=== PATIENT | female | born 1975 | race African-American/Black ===

== ENCOUNTER 2016-09-17 12:23 | Emergency (ER) | payer SELFPAY ==
[~2016-09-17] VITALS: Ht 170.2 cm; Wt 80.0 kg
[~2016-09-17 12:23] MED LIST: IBUP-238 PO; METH750T2 PO; PHEN-426 PO; Z.0.NO CURRENT MEDS
[2016-09-17 12:26] VITALS: BP 127/77; PULSE 98; RESP 14; TEMP 98.9; O2SAT 96
--- NOTE | 2016-09-17 13:23 | PD ---
HPI Chief Complaint: Complaint Time Seen by Provider: 13:23 Travel History International Travel<30 days: No Contact w/Intl Traveler<30days: No Traveled to known affect area: No History of Present Illness HPI 41-year-old female presents to the emergency department with multiple complaints. First complaint is burning on urination, urinary urgency, frequency , and hematuria 3 weeks. Has associated lower back pain that is worse on the left. Also reports left lower quadrant abdominal pain. Denies history of kidney stones. It is also complaining of vaginal odor and discharge 3 weeks. Denies vaginal itching or lesions. Reports unprotected sexual intercourse with one partner. Denies vaginal pain. Denies fever, chills. Reports nausea without vomiting. Is also complaining of multiple boils to her buttocks 3 weeks. Reports most of the boils of him to ahead, burst and drained. There is one that has started over the past few days. Denies difficulty stooling. Starting Azo for her urinary symptoms with no relief. Has done warm compresses to her buttocks with good relief of the boils. Has not tried any treatments or medications for her vaginal odor or discharge. History of asthma. No other modifying factors or associated signs and symptoms. PFSH Past Medical History Asthma: Yes ?: Not Para: 4 Past Surgical History Hysterectomy: No (TUBAL) Social History Alcohol Use: Yes (socially) Tobacco Use: Yes (/2 PPD) Allergies-Medications (Allergen,Severity, Reaction): Coded Allergies: No Known Allergies (Verified , 09/17/16) Reported Meds & Prescriptions Reported Meds & Active Scripts Active Ibuprofen 800 Mg Tab 800 Mg PO Q6HR PRN Bactrim DS (Sulfamethoxazole-Trimethoprim) 800-160 Mg Tab 1 Tab PO BID 10 Days Keflex (Cephalexin) 500 Mg Cap 500 Mg PO Q6H 10 Days Review of Systems Except as stated in HPI: all other systems reviewed are Neg Physical Exam Narrative GENERAL: Well-nourished, well-developed female patient, in no acute distress; afebrile, nontoxic-appearing SKIN: Warm and dry. No rash. 4 indurated areas noted to bilateral buttocks; 3 of them are nonfluctuant and appeared to have already drained; one of them is approximately 0.5 cm in diameter and is nonfluctuant and with mild erythema and tenderness on palpation; none with pointing or drainage. HEAD: Atraumatic. Normocephalic. EYES: Pupils equal and round. No scleral icterus. No injection or drainage. ENT: Mucosa pink and moist. NECK: Trachea midline. CARDIOVASCULAR: Regular rate and rhythm. No murmur appreciated. RESPIRATORY: No accessory muscle use. Clear to auscultation. Breath sounds equal bilaterally. GASTROINTESTINAL: Abdomen soft, lower quadrant abdominal tenderness on palpation, nondistended. Hepatic and splenic margins not palpable. Bowel sounds are active 4 quadrants. Bladder nontender and nondistended. PELVIC: Speculum exam reveals edematous and erythematous cervix with moderate amount of yellow, foul-smelling mucopurulent discharge. Bimanual exam reveals no palpable masses or adnexa tenderness, no uterine tenderness. Negative cervical motion tenderness. MUSCULOSKELETAL: No obvious deformities. No clubbing. No cyanosis. No edema. BACK: Left CVA tenderness NEUROLOGICAL: Awake and alert. Oriented 3. No obvious cranial nerve deficits. Motor grossly within normal limits. Normal speech. Moves all extremities. 5/5 strength to all extremities. PSYCHIATRIC: Appropriate mood and affect; insight and judgment normal. Data Data Last Documented VS Vital Signs Date Time Temp Pulse Resp B/P Pulse Ox O2 Delivery O2 Flow Rate FiO2 09/17/16 12:26 98.9 98 14 127/77 96 Orders Urinalysis - C+S If Indicated (09/17/16 12:29) Ed Urine Pregnancytest Poc (09/17/16 12:45) Ct Abd/Pel W/O Iv Contrast (09/17/16 ) Complete Blood Count With Diff (09/17/16 13:52) Comprehensive Metabolic Panel (09/17/16 13:52) Lipase (09/17/16 13:52) Gc And Chlamydia Pcr (09/17/16 13:52) Wet Prep Profile (09/17/16 13:52) Iv Access Insert/Monitor (09/17/16 14:43) Ketorolac Inj (Toradol Inj) (09/17/16 16:00) Azithromycin Powd Pack (Zithromax Powd P (09/17/16 16:00) Ceftriaxone Inj (Rocephin Inj) (09/17/16 16:00) Labs Laboratory Tests Test 09/17/16 09/17/16 09/17/16 13:06 14:45 15:30 Urine Color YELLOW Urine Turbidity CLEAR Urine pH 6.0 Urine Specific [place] 1.027 Urine Protein NEG mg/dL Urine Glucose (UA) NEG mg/dL Urine Ketones NEG mg/dL Urine Occult Blood MOD Urine Nitrite NEG Urine Bilirubin NEG Urine Urobilinogen LESS THAN 2.0 MG/DL Urine Leukocyte Esterase NEG Urine RBC 7 /hpf Urine WBC 2 /hpf Urine Squamous Epithelial 2 /hpf Cells Urine Bacteria RARE /hpf Urine Hyaline Casts 1 /lpf Urine Mucus FEW /lpf Microscopic Urinalysis Comment CULT NOT INDICATED White Blood Count 6.6 TH/MM3 Red Blood Count 4.80 MIL/MM3 Hemoglobin 13.2 GM/DL Hematocrit 40.1 % Mean Corpuscular Volume 83.6 FL Mean Corpuscular Hemoglobin 27.5 PG Mean Corpuscular Hemoglobin 32.9 % Concent Red Cell Distribution Width 13.8 % Platelet Count 288 TH/MM3 Mean Platelet Volume 8.4 FL Neutrophils (%) (Auto) 61.5 % Lymphocytes (%) (Auto) 31.3 % Monocytes (%) (Auto) 5.8 % Eosinophils (%) (Auto) 0.6 % Basophils (%) (Auto) 0.8 % Neutrophils # (Auto) 4.1 TH/MM3 Lymphocytes # (Auto) 2.1 TH/MM3 Monocytes # (Auto) 0.4 TH/MM3 Eosinophils # (Auto) 0.0 TH/MM3 Basophils # (Auto) 0.1 TH/MM3 CBC Comment DIFF FINAL Differential Comment Sodium Level 144 MEQ/L Potassium Level 4.3 MEQ/L Chloride Level 111 MEQ/L Carbon Dioxide Level 27.1 MEQ/L Anion Gap 6 MEQ/L Blood Urea Nitrogen 15 MG/DL Creatinine 0.79 MG/DL Estimat Glomerular Filtration 96 ML/MIN Rate Random Glucose 96 MG/DL Calcium Level 8.9 MG/DL Total Bilirubin 0.2 MG/DL Aspartate Amino Transf 6 U/L (AST/SGOT) Alanine Aminotransferase 14 U/L (ALT/SGPT) Alkaline Phosphatase 70 U/L Total Protein 7.2 GM/DL Albumin 3.5 GM/DL Lipase 72 U/L Clue Cells (Wet Prep) NONE SEEN Vaginal Trichomonas (Wet Prep) NONE SEEN Vaginal Yeast (Wet Prep) NONE SEEN MDM Medical Decision Making Medical Screen Exam Complete: Yes Emergency Medical Condition: Yes Medical Record Reviewed: Yes Differential Diagnosis Urinary tract infection, pyelonephritis, kidney stones, abscesses, vaginal yeast , bacterial vaginosis, gonorrhea, chlamydia Narrative Course 41-year-old female with multiple complaints. Vital signs are stable and patient is afebrile. Reproducible left lower quadrant abdominal pain. Left CVA tenderness. Hematuria. IV set obtained. Labs and imaging ordered. 1400: Urinalysis concludes occult blood, 7 urine RBC, and without signs of infection. 1500: CT abdomen/pelvis concludes 3.73.1 cm cyst in the right ovary; and large umbilical hernia. Results of the CT discussed with the patient and Patient provided with a report of the CT. 1545: Pelvic exam with a cervix that is edematous and erythematous with foul- smelling mucopurulent discharge. Negative cervical motion tenderness. Patient will be empirically treated with Rocephin and azithromycin. 1629: Wet prep negative for clue cells, vaginal Trichomonas, vaginal yeast. Chlamydia and gonorrhea pending. I discussed the patient with Dr. Thibodeaux, my attending physician and she agrees the patient can continue to follow up outpatient. Keflex and Bactrim prescribed for home for buttock abscesses. Ibuprofen prescribed for home. Instructed patient to follow-up with primary care provider in one week to recheck urine for blood and she verbalized understanding and agreement. Patient is medically cleared and stable for discharge. Discussed reasons to return to the emergency department. Instructed patient to follow up with primary care provider. Patient agrees with treatment plan. The patients vital signs are stable and the patient is stable for outpatient follow-up and treatment. Patient discharged home, stable and in no acute distress. Diagnosis Primary Impression: Boil of buttock Additional Impressions: Cervicitis Hematuria Referrals: Elevator Attendant Primary Care Physician Patient Instructions: Abscess (ED), Cervicitis (ED), General Instructions, Hematuria (ED) Additional Instructions: Complete full course of antibiotics Warm compresses to buttocks to help relieve boils Keep area clean and dry Ibuprofen or Tylenol as instructed needed for pain and inflammation Follow-up with primary care provider Follow-up with bioinformatics programmer Follow-up with urologist as needed Return to emergency department immediately with worsening of symptoms Med/Other Pt SpecificInfo: Prescription(s) given Scripts Ibuprofen 800 Mg [id number] Mg PO Q6HR PRN (PAIN) #30 TAB Ref 0 Prov:Sandra Gonzalez [employer] TEACHER 1/6/17 Sulfamethoxazole-Trimethoprim (Bactrim DS)800-160 Mg Tab1 Tab PO BID 10 Days Ref 0 Prov:Sandra Gonzalez 09/17/16 Cephalexin (Keflex)500 Mg [id number] Mg PO Q6H 10 Days Ref 0 Prov:Sandra Gonzalez 09/17/16 Disposition: 01 DISCHARGE HOME Condition: Stable Sandra Gonzalez Sep 17, 2016 13:23
[2016-09-17 13:44] LABS: BACTERIA, URINE RARE /hpf; BLOOD, URINE MOD (NEG); COMMENT (UR) CULT NOT INDICATED; CULTURE IF INDICATED CULT NOT INDICATED; GLUCOSE,URINE NEG (NEG); HYALINE CAST, URINE 1 /lpf (RARE); KETONE, URINE NEG (NEG); MUCUS URINE FEW /lpf (OCC); NITRITE,URINE NEG (NEG); SQUAMOUS EPITHELIAL CELL URINE 2 /hpf (0-5); URINE COLOR YELLOW (YELLW/STRAW)
--- NOTE | 2016-09-17 14:21 | RADRPT ---
EXAM DATE/TIME: 09/17/2016 14:02 [facility] COMPARISON: No previous studies available for comparison. INDICATIONS : Left flank pain as well as burning sensation when urinating, evaluate for renal stone. ORAL CONTRAST: No oral contrast ingested. RADIATION DOSE: 13.71 CTDIvol (mGy) MEDICAL HISTORY : None SURGICAL HISTORY : Tubal ligation. ENCOUNTER: Initial ACUITY: 2 days PAIN SCALE: 3/10 LOCATION: Left flank TECHNIQUE: Volumetric scanning of the abdomen and pelvis was performed. Using automated exposure control and ad justment of the mA and/or kV according to patient size, radiation dose was kept as low as reasonably achievable to obtain optimal diagnostic quality images. FINDINGS: The limited portion of the lung base visualized is clear. Right kidney/ureter: The right kidney is normal in size. No stones are seen. The right ureter is followed throughout its c ourse and is unremarkable in appearance. Left kidney/ureter: The left kidney is normal in size. No stones are seen. The left ureter is followed throughout its cou rse and is normal in caliber. Bladder: No stones are identified within the bladder. The appearance of the liver, spleen, pancreas and adrenal glands is within normal limits. The abdomin al aorta is normal in caliber. There is no retroperitoneal adenopathy. The visualized loops of small large bowel are unremarkable. The exam does demonstrate a moderate sized umbilical hernia. The reproductive organs are intact. The exam does demonstrate a 3.7 x 3.1 cm cyst in the right ovary. There is no free fluid within the pelvis. No iliac or inguinal adenopathy is seen. CONCLUSION: 1. 3.7 x 3.1 cm cyst in the right ovary. 2. Large umbilical hernia. Filemon Garcia MD on September 17, 2016 at 14:14 Board Certified Radiologist. This report was verified electronically.
[2016-09-17 15:03] LABS: AUTOMATED NEUTROPHIL # 4.1 TH/MM3 (1.8-7.7); BASOPHIL # 0.1 TH/MM3 (0-0.2); BASOPHIL % 0.8 % (0.0-2.0); EOSINOPHIL % 0.6 % (0.0-4.0); HEMATOCRIT 40.1 % (35.0-46.0); HEMO FLAGS DIFF FINAL; LYMPH % 31.3 % (9.0-44.0); LYMPHOCYTE # 2.1 TH/MM3 (1.0-4.8); MEAN CELL VOLUME 83.6 FL (80.0-100.0); MEAN CORPUSCULAR HEMOGLOBIN 27.5 PG (27.0-34.0); MEAN CORPUSCULAR HGB CONC 32.9 % (32.0-36.0); MONO % 5.8 % (0.0-8.0); NEUT % 61.5 % (16.0-70.0); PLATELET COUNT 288 TH/MM3 (150-450); RED CELL DISTRIBUTION WIDTH 13.8 % (11.6-17.2); WHITE BLOOD COUNT 6.6 TH/MM3 (4.0-11.0)
[2016-09-17 15:24] LABS: ALT (GPT) 14 U/L (10-53); ANION GAP 6 MEQ/L (5-15); AST (GOT) 6 U/L (15-37); BICARBONATE 27.1 MEQ/L (21.0-32.0); BLOOD UREA NITROGEN 15 MG/DL (7-18); CHLORIDE 111 MEQ/L (98-107); GLOMERULAR FILTRATION RATE 96 ML/MIN (>89); POTASSIUM 4.3 MEQ/L (3.5-5.1); SODIUM (NA) 144 MEQ/L (136-145)
[2016-09-17 15:26] LABS: ALKALINE PHOSPHATASE 70 U/L (45-117); TOTAL BILIRUBIN ADULT 0.2 MG/DL (0.2-1.0)
[2016-09-17] MEDS ORDERED: KETOROLAC TROMETHAMINE 30 MG/ML (IVP) VIAL IV PUSH ONE (16:00)
[2016-09-17] MEDS ORDERED: cefTRIAXone INJ 1,000 MG in SODIUM CHLORIDE 0.9% INJ 100 ML IV ONE (16:00)
[2016-09-17] MEDS ORDERED: AZITHROMYCIN PWD FOR SUSP 1 GM PACKET PO ONE (16:00)
[2016-09-17] MEDS ORDERED: IBUP800T23 PO (16:43)
[2016-09-17] MEDS ORDERED: CEPH-460 PO (16:43)
[2016-09-17] MEDS ORDERED: BACT800T5 PO (16:43)
[2016-09-17 17:06] VITALS: BP 124/78
[2016-09-17 18:04] LABS: CHLAMYDIA PCR NOT DETECTED (NOT DETECT); NEISSERIA PCR NOT DETECTED (NOT DETECT)
== END 2016-09-17 17:13 | disposition home or self-care (01) ==
LOC: NEPB 12:23
DX: F17.210 Nicotine dependence, cigarettes, uncomplicated (principal); L02.32 Furuncle of buttock; N72 Inflammatory disease of cervix uteri; R31.9 Hematuria, unspecified
CPT/HCPCS: 74176; 80053; 81001; 83690; 84703; 85025; 87210; 87491; 87591; 96365; 96375; 99284; J0696; J1885

== ENCOUNTER 2017-12-30 03:48 | Emergency (ER) | payer SELFPAY ==
[~2017-12-30] VITALS: Ht 170.2 cm; Wt 85.0 kg
[~2017-12-30 03:48] MED LIST changes: +BACT800T5 PO; +CEPH-460 PO; -IBUP-238 PO; +IBUP1TAB7 PO; -METH750T2 PO; -PHEN-426 PO; -Z.0.NO CURRENT MEDS
[2017-12-30 03:51] VITALS: BP 134/79; PULSE 81; RESP 16; TEMP 102.1; O2SAT 99
[2017-12-30 05:05] VITALS: TEMP 98.3
[2017-12-30 05:31] LABS: BILIRUBIN, URINE NEG (NEG); BLOOD, URINE SMALL (NEG); GLUCOSE,URINE NEG (NEG); KETONE, URINE NEG (NEG); MUCUS URINE FEW /lpf (OCC); NITRITE,URINE NEG (NEG); PH, URINE 6.5 (5.0-8.5); SQUAMOUS EPITHELIAL CELL URINE 5 /hpf (0-5); URINE COLOR YELLOW (YELLW/STRAW); URINE LEUKOCYTE ESTERASE NEG (NEG)
--- NOTE | 2017-12-30 06:53 | PD ---
HPI Chief Complaint: Complaint Time Seen by Provider: 04:59 Travel History International Travel<30 days: No Contact w/Intl Traveler<30days: No Traveled to known affect area: No History of Present Illness HPI pt is 42 yr old female with 1 month of back pain that comes and goes worse at night laying in her bed not improving with tylenol, She denies dysuria no N/V/D PFSH Past Medical History Asthma: Yes ?: Not Para: 4 Past Surgical History Hysterectomy: No (TUBAL) Social History Alcohol Use: Yes (socially) Tobacco Use: Yes (1/2 PPD) Substance Use: No Allergies-Medications (Allergen,Severity, Reaction): Coded Allergies: No Known Allergies (Verified Adverse Reaction, Unknown, 12/30/17) Reported Meds & Prescriptions Reported Meds & Active Scripts Active Arthrotec 50 (Diclofenac-Misoprostol) 50-0.2 Mg Tab 1 Tab PO BID Ibuprofen 800 Mg Tab 800 Mg PO Q6HR PRN Bactrim DS (Sulfamethoxazole-Trimethoprim) 800-160 Mg Tab 1 Tab PO BID 10 Days Keflex (Cephalexin) 500 Mg Cap 500 Mg PO Q6H 10 Days Review of Systems Except as stated in HPI: all other systems reviewed are Neg (back pain) Physical Exam Narrative GENERAL: mildly obese SKIN: Warm and dry. HEAD: Atraumatic. Normocephalic. EYES: Pupils equal and round. No scleral icterus. No injection or drainage. ENT: No nasal bleeding or discharge. Mucous membranes pink and moist. NECK: Trachea midline. No JVD. CARDIOVASCULAR: Regular rate and rhythm. RESPIRATORY: No accessory muscle use. Clear to auscultation. Breath sounds equal bilaterally. GASTROINTESTINAL: Abdomen soft, non-tender, nondistended. Hepatic and splenic margins not palpable. BACK lower back pain and para-lumbral tenderness MUSCULOSKELETAL: Extremities without clubbing, cyanosis, or edema. No obvious deformities. NEUROLOGICAL: Awake and alert. No obvious cranial nerve deficits. Motor grossly within normal limits. Five out of 5 muscle strength in the arms and legs. Normal speech. PSYCHIATRIC: Appropriate mood and affect; insight and judgment normal. Data Data Last Documented VS Vital Signs Date Time Temp Pulse Resp B/P (MAP) Pulse Ox O2 Delivery O2 Flow Rate FiO2 12/30/17 10:52 12/30/17 09:28 68 18 98 Room Air 12/30/17 05:05 98.3 Orders Orders Urinalysis - C+S If Indicated (12/30/17 05:00) Ed Urine Pregnancytest Poc (12/30/17 05:00) Complete Blood Count With Diff (12/30/17 06:31) Comprehensive Metabolic Panel (12/30/17 06:31) Lipase (12/30/17 06:31) Ct Abd/Pel W/O Iv Contrast (12/30/17 06:31) Ketorolac Inj (Toradol Inj) (12/30/17 07:00) Ct Lumb Spine W/O Contrast (12/30/17 ) Ed Discharge Order (12/30/17 10:47) Labs Laboratory Tests Test 12/30/17 05:00 12/30/17 06:35 Urine Color YELLOW Urine Turbidity CLEAR Urine pH 6.5 Urine Specific [place] 1.028 Urine Protein TRACE mg/dL Urine Glucose (UA) NEG mg/dL Urine Ketones NEG mg/dL Urine Occult Blood SMALL Urine Nitrite NEG Urine Bilirubin NEG Urine Urobilinogen LESS THAN 2.0 MG/DL Urine Leukocyte Esterase NEG Urine RBC 8 /hpf Urine WBC 1 /hpf Urine Squamous Epithelial Cells 5 /hpf Urine Mucus FEW /lpf Microscopic Urinalysis Comment CULT NOT INDICATED White Blood Count 6.9 TH/MM3 Red Blood Count 4.61 MIL/MM3 Hemoglobin 13.0 GM/DL Hematocrit 39.4 % Mean Corpuscular Volume 85.5 FL Mean Corpuscular Hemoglobin 28.1 PG Mean Corpuscular Hemoglobin Concent 32.9 % Red Cell Distribution Width 13.6 % Platelet Count 256 TH/MM3 Mean Platelet Volume 8.0 FL Neutrophils (%) (Auto) 58.6 % Lymphocytes (%) (Auto) 31.3 % Monocytes (%) (Auto) 7.6 % Eosinophils (%) (Auto) 1.9 % Basophils (%) (Auto) 0.6 % Neutrophils # (Auto) 4.1 TH/MM3 Lymphocytes # (Auto) 2.2 TH/MM3 Monocytes # (Auto) 0.5 TH/MM3 Eosinophils # (Auto) 0.1 TH/MM3 Basophils # (Auto) 0.0 TH/MM3 CBC Comment DIFF FINAL Differential Comment Blood Urea Nitrogen 14 MG/DL Creatinine 0.72 MG/DL Random Glucose 83 MG/DL Total Protein 6.9 GM/DL Albumin 3.6 GM/DL Calcium Level 8.8 MG/DL Alkaline Phosphatase 59 U/L Aspartate Amino Transf (AST/SGOT) 9 U/L Alanine Aminotransferase (ALT/SGPT) 15 U/L Total Bilirubin 0.3 MG/DL Sodium Level 144 MEQ/L Potassium Level 4.2 MEQ/L Chloride Level 113 MEQ/L Carbon Dioxide Level 29.1 MEQ/L Anion Gap 2 MEQ/L Estimat Glomerular Filtration Rate 106 ML/MIN Lipase 83 U/L [facility] Medical Decision Making Medical Screen Exam Complete: Yes Emergency Medical Condition: Yes Differential Diagnosis radiculopaathy vs disc disease UTI pyelonephritis other Narrative Course pt has CT abdo looking for renal stone vs disc disease , no stones in ureters and mild arthritis on L-spine sacral joint CT Diagnosis Primary Impression: Back pain Qualified Codes: M54.5 - Low back pain Scripts Diclofenac-Misoprostol (Arthrotec 50) 50-0.2 Mg Tab 1 TAB PO BID for Pain Management, #60 TAB 0 Refills Prov: Slava Alexander MD 12/30/17 Disposition: 01 DISCHARGE HOME Maged López MD Dec 30, 2017 06:53
[2017-12-30 06:55] LABS: AUTOMATED NEUTROPHIL # 4.1 TH/MM3 (1.8-7.7); BASOPHIL % 0.6 % (0.0-2.0); EOSINOPHIL # 0.1 TH/MM3 (0-0.4); EOSINOPHIL % 1.9 % (0.0-4.0); HEMATOCRIT 39.4 % (35.0-46.0); LYMPH % 31.3 % (9.0-44.0); LYMPHOCYTE # 2.2 TH/MM3 (1.0-4.8); MEAN CELL VOLUME 85.5 FL (80.0-100.0); MEAN CORPUSCULAR HEMOGLOBIN 28.1 PG (27.0-34.0); MEAN CORPUSCULAR HGB CONC 32.9 % (32.0-36.0); MONO % 7.6 % (0.0-8.0); MONOCYTE # 0.5 TH/MM3 (0-0.9); NEUT % 58.6 % (16.0-70.0); PLATELET COUNT 256 TH/MM3 (150-450); RED BLOOD COUNT 4.61 MIL/MM3 (4.00-5.30); RED CELL DISTRIBUTION WIDTH 13.6 % (11.6-17.2); WHITE BLOOD COUNT 6.9 TH/MM3 (4.0-11.0)
[2017-12-30] MEDS ORDERED: KETOROLAC TROMETHAMINE 30 MG/ML (IVP) VIAL IV PUSH ONE (07:00)
[2017-12-30 07:12] LABS: ALBUMIN 3.6 GM/DL (3.4-5.0); ALT (GPT) 15 U/L (10-53); AST (GOT) 9 U/L (15-37); BICARBONATE 29.1 MEQ/L (21.0-32.0); BLOOD UREA NITROGEN 14 MG/DL (7-18); CALCIUM 8.8 MG/DL (8.5-10.1); CHLORIDE 113 MEQ/L (98-107); CREATININE 0.72 MG/DL (0.50-1.00); GLOMERULAR FILTRATION RATE 106 ML/MIN (>89); GLUCOSE,RANDOM 83 MG/DL (74-106); SODIUM (NA) 144 MEQ/L (136-145)
[2017-12-30 07:15] LABS: ALKALINE PHOSPHATASE 59 U/L (45-117); TOTAL BILIRUBIN ADULT 0.3 MG/DL (0.2-1.0); TOTAL PROTEIN 6.9 GM/DL (6.4-8.2)
--- NOTE | 2017-12-30 08:36 | RADRPT ---
EXAM DATE/TIME: 12/30/2017 08:10 [facility] COMPARISON: CT ABDOMEN & PELVIS W/O CONTRAST, September 17, 2016, 14:02. INDICATIONS : Left flank pain, painful urination ORAL CONTRAST: No oral contrast ingested. RADIATION DOSE: 8.23 CTDIvol (mGy) MEDICAL HISTORY : None SURGICAL HISTORY : Tubal ligation. Hysterectomy. ENCOUNTER: Initial ACUITY: 1 day PAIN SCALE: 5/10 LOCATION: Left flank TECHNIQUE: Volumetric scanning of the abdomen and pelvis was performed. Using automated exposure control and ad justment of the mA and/or kV according to patient size, radiation dose was kept as low as reasonably achievable to obtain optimal diagnostic quality images. DICOM format image data is available electro nically for review and comparison. FINDINGS: LOWER LUNGS: The visualized lower lungs are clear. LIVER: Visualized portions demonstrate homogeneous density without intrahepatic duct dilatation or volume lo ss. No calcified gallstones. SPLEEN: Normal size without lesion. PANCREAS: Within normal limits. KIDNEYS: Very subtle 2 mm right midpole calyceal calculus. No additional calcified renal calculi. No hydroneph rosis with symmetric renal size. There are no contour deforming abnormalities. ADRENAL GLANDS: Within normal limits. VASCULAR: There is no aortic aneurysm. BOWEL/MESENTERY: The stomach, small bowel, and colon demonstrate no acute abnormality. Appendix is visualized and norm al in appearance. There are scattered colonic diverticula primarily in the descending colon without e vidence for inflammatory change. There is no free intraperitoneal air. ABDOMINAL WALL: Redemonstration of a large mouth fat containing anterior abdominal periumbilical hernia. RETROPERITONEUM: There is no lymphadenopathy. BLADDER: Mildly distended without significant focal wall thickening or radiopaque bladder calculi. REPRODUCTIVE: Uterus is enlarged and leiomyomatous in appearance. Trace pelvic free fluid. INGUINAL: There is no lymphadenopathy or hernia. MUSCULOSKELETAL: Within normal limits for patient age. CONCLUSION: 1. Subtle 2 mm nonobstructing calyceal calculus in the mid right kidney. No obstructive uropathy. 2. Normal appendix. 3. Leiomyomatous uterus. 4. Trace pelvic free fluid. 5. Fat containing anterior periumbilical abdominal wall hernia. Humberto Steward MD on December 30, 2017 at 8:25 Board Certified Radiologist. This report was verified electronically.
--- NOTE | 2017-12-30 08:54 | RADRPT ---
EXAM DATE/TIME: 12/30/2017 08:10 [facility] COMPARISON: No previous studies available for comparison. INDICATIONS : Back pain RADIATION DOSE: ; Reconstructed from previous dataset, no dose MEDICAL HISTORY : None SURGICAL HISTORY : Tubal ligation. Hysterectomy. ENCOUNTER: Initial ACUITY: 1 day PAIN SCALE: 5/10 LOCATION: Lower back TECHNIQUE: Volumetric scanning of the lumbar spine was performed. Multiplanar reconstructions in the sagittal, coronal and oblique axial planes were performed. Using automated exposure control and adjustment of the mA and/or kV according to patient size, radiation dose was kept as low as reasonably achievable t o obtain optimal diagnostic quality images. DICOM format image data is available electronically for review and comparison. FINDINGS: The lumbar spinal alignment is normal. There is no evidence of fracture or destructive change. There is no evidence of bony canal or foraminal compromise. Disc spaces are well-preserved. There is modera te posterior facet arthropathy at the lumbosacral junction. There is no evidence of paraspinal mass o r hematoma. CONCLUSION: Lumbosacral posterior facet arthropathy. No acute findings. Aydin Marc MD on December 30, 2017 at 8:48 Board Certified Radiologist. This report was verified electronically.
[2017-12-30 09:28] VITALS: BP 133/88; PULSE 68; RESP 18; O2SAT 98
--- NOTE | 2017-12-30 09:56 | PD ---
Physical Exam Date Seen by Provider: Dec 30, 2017 Time Seen by Provider: 07:00 Narrative The patient was signed out to me by Dr. López at change of shift. We are awaiting CT scan to rule out obstructive uropathy. 42-year-old female presents with left-sided flank pain. Patient works as a [employer] MANAGER. Patient states it has been on and off for 1 month. There is no reported fevers, chills. There is no reported dysuria. Data Data Last Documented VS Vital Signs Date Time Temp Pulse Resp B/P (MAP) Pulse Ox O2 Delivery O2 Flow Rate FiO2 12/30/17 09:28 68 18 133/88 (103) 98 Room Air 12/30/17 05:05 98.3 Orders Orders Urinalysis - C+S If Indicated (12/30/17 05:00) Ed Urine Pregnancytest Poc (12/30/17 05:00) Complete Blood Count With Diff (12/30/17 06:31) Comprehensive Metabolic Panel (12/30/17 06:31) Lipase (12/30/17 06:31) Ct Abd/Pel W/O Iv Contrast (12/30/17 06:31) Ketorolac Inj (Toradol Inj) (12/30/17 07:00) Ct Lumb Spine W/O Contrast (12/30/17 ) Labs Laboratory Tests Test 12/30/17 05:00 12/30/17 06:35 Urine Color YELLOW Urine Turbidity CLEAR Urine pH 6.5 Urine Specific [place] 1.028 Urine Protein TRACE mg/dL Urine Glucose (UA) NEG mg/dL Urine Ketones NEG mg/dL Urine Occult Blood SMALL Urine Nitrite NEG Urine Bilirubin NEG Urine Urobilinogen LESS THAN 2.0 MG/DL Urine Leukocyte Esterase NEG Urine RBC 8 /hpf Urine WBC 1 /hpf Urine Squamous Epithelial Cells 5 /hpf Urine Mucus FEW /lpf Microscopic Urinalysis Comment CULT NOT INDICATED White Blood Count 6.9 TH/MM3 Red Blood Count 4.61 MIL/MM3 Hemoglobin 13.0 GM/DL Hematocrit 39.4 % Mean Corpuscular Volume 85.5 FL Mean Corpuscular Hemoglobin 28.1 PG Mean Corpuscular Hemoglobin Concent 32.9 % Red Cell Distribution Width 13.6 % Platelet Count 256 TH/MM3 Mean Platelet Volume 8.0 FL Neutrophils (%) (Auto) 58.6 % Lymphocytes (%) (Auto) 31.3 % Monocytes (%) (Auto) 7.6 % Eosinophils (%) (Auto) 1.9 % Basophils (%) (Auto) 0.6 % Neutrophils # (Auto) 4.1 TH/MM3 Lymphocytes # (Auto) 2.2 TH/MM3 Monocytes # (Auto) 0.5 TH/MM3 Eosinophils # (Auto) 0.1 TH/MM3 Basophils # (Auto) 0.0 TH/MM3 CBC Comment DIFF FINAL Differential Comment Blood Urea Nitrogen 14 MG/DL Creatinine 0.72 MG/DL Random Glucose 83 MG/DL Total Protein 6.9 GM/DL Albumin 3.6 GM/DL Calcium Level 8.8 MG/DL Alkaline Phosphatase 59 U/L Aspartate Amino Transf (AST/SGOT) 9 U/L Alanine Aminotransferase (ALT/SGPT) 15 U/L Total Bilirubin 0.3 MG/DL Sodium Level 144 MEQ/L Potassium Level 4.2 MEQ/L Chloride Level 113 MEQ/L Carbon Dioxide Level 29.1 MEQ/L Anion Gap 2 MEQ/L Estimat Glomerular Filtration Rate 106 ML/MIN Lipase 83 U/L [facility]DM Medical Record Reviewed: Yes Supervised Visit with NAYELI: No Differential Diagnosis Renal calculi versus pyelonephritis versus lumbar arthritis Narrative Course 42-year-old female presents with low back pain worse on the left 1 month. Patient had mild hematuria noted on urinalysis. CT scan shows a 2 mm nonobstructive stone on the right kidney. There is no evidence of ureteral stone or kidney stones on the left. Lumbar spine shows arthropathy. I discussed findings with the patient. I have encouraged her to bend her knees when lifting at work. 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 She also be given a prescription for Arthrotec 1 month. She will be given information on the [facility] for follow-up in obtaining a primary care physician. Diagnosis Primary Impression: Lumbar arthropathy Additional Impressions: Right 2 mm kidney stone Mild hematuria Referrals: [facility] Additional Instruction: Bend knees while lifting at work. Moist heat 2-3 times daily for the next 2-3 days. Follow-up with primary care physician. Med/Other Pt SpecificInfo: Prescription(s) given Disposition: 01 DISCHARGE HOME Condition: Stable Slava Alexander MD Dec 30, 2017 09:56
[2017-12-30] MEDS ORDERED: ARTHTAB2 PO (09:57)
== END 2017-12-30 11:01 | disposition home or self-care (01) ==
LOC: NED 03:48 → NEPC 11:01
DX: M46.96 Unspecified inflammatory spondylopathy, lumbar region (principal); N20.0 Calculus of kidney; F17.200 Nicotine dependence, unspecified, uncomplicated
CPT/HCPCS: 72131; 74176; 80053; 81001; 83690; 84703; 85025; 96374; 99284; J1885